=== PATIENT | female | born 1990 ===

== ENCOUNTER 2020-07-11 08:28 | Inpatient (IN) ==
[2020-07-11] MEDS ORDERED: CARBOPROST TROMETHAMINE 250 MCG/ML AMP IM PRN (09:08)
[2020-07-11] MEDS ORDERED: miSOPROStoL 200 MCG TABLET VAG PRN (09:08)
[2020-07-11] MEDS ORDERED: ONDANSETRON 4 MG/2 ML VIAL IV PRN (09:08)
[2020-07-11] MEDS ORDERED: MEPERIDINE 50 MG/1 ML VIAL IV PRN (09:08)
[2020-07-11] MEDS ORDERED: BUTORPHANOL 2 MG/ML VIAL IV PRN (09:08)
[2020-07-11] MEDS ORDERED: TERBUTALINE 1 MG/1 ML VIAL SUBCUT PRN (09:08)
[2020-07-11] MEDS ORDERED: LIDOCAINE 1% 50 ML VIAL MISC INJ ONE (09:08)
[2020-07-11 09:30] LABS: Basophils % 0.3 % (0.0-0.8); Eosinophils # 0.1 10*3/uL (0.0-0.87); Eosinophils % 1.6 % (0.00-10.9); Hematocrit 34.2 VOL% (35.7-47.0); Hemoglobin 11.4 GM/DL (12.0-16.0); Immature Granulocytes % 0.4 %; Immature Granulocytes Absolute 0.03 #; Lymphocytes # 1.8 10*3/uL (1.4-4.0); Lymphocytes % 21.9 % (21.3-54.2); Mean Corpuscular HGB Conc 33.3 GM/DL (32-36); Mean Corpuscular Volume 88.1 FL (87-102); Mean Platelet Volume 9.3 FL (9.6-12.0); Monocytes % 7.9 % (1.7-12.7); Neutrophils % 67.9 % (38.7-73.9); Platelet Count 250 T/CUMM (130-400); Red Blood Count 3.88 MC/CUMM (3.8-5.5); Red Cell Distribution Width 13.6 % (9.3-17.3)
[2020-07-11] MEDS ORDERED: OXYTOCIN/LR 20 UNIT/1,000 ML BAG IV SCH (09:30)
[2020-07-11] MEDS ORDERED: hydrOXYzine HCL 25 MG/1 ML VIAL IM PRN (09:37)
[2020-07-11] MEDS ORDERED: diphenhydrAMINE 50 MG/1 ML VIAL IV PRN ×2 (09:37)
[2020-07-11] MEDS ORDERED: ePHEDrine 50 MG/ML VIAL IV PRN ×2 (09:37)
[2020-07-11] MEDS ORDERED: FAMOTIDINE 20 MG/2 ML VIAL IV ONE (09:37)
[2020-07-11] MEDS ORDERED: CITRIC ACID/SODIUM CITRATE 30 ML UDCUP PO ONE (09:37)
[2020-07-11] MEDS ORDERED: NALOXONE 0.4 MG/ML VIAL IV PRN (09:37)
[2020-07-11] MEDS ORDERED: PROMETHAZINE 25 MG/1 ML VIAL IM PRN (09:37)
[2020-07-11 09:54] LABS: Alanine Aminotransferase 12 U/L (13-56); Albumin 2.3 G/DL (3.4-5.0); Alkaline Phosphatase 124 U/L (45-117); Aspartate Amino Transferase 3 U/L (0-37); Bilirubin,Total < 0.39 MG/DL (0.2-1.0); Blood Urea Nitrogen 9 MG/DL (7-18); Calcium 8.1 MG/DL (8.5-10.1); Estimated Glom Filtration Rate 168 ML/MIN; Glucose 82 MG/DL (74-106); Osmolality,Calculated 276.4 MOS/KG (273-304); Total Protein 6.1 G/DL (6.4-8.3)
[2020-07-11] MEDS: LACTATED RINGERS 1,000 ML IV SCH ×3 (10:03→18:22)
[2020-07-11] MEDS ORDERED: ceFAZolin 2,000 MG in PREMIX 1 EACH IV ONE (10:30)
[2020-07-11] MEDS: fentaNYL 2 MCG/ROPIV 0.2% EPID 100 ML EPIDURAL SCH ×2 (13:58→20:35)
[2020-07-11 14:52] LABS: Bilirubin,Urine Negative (Negative); Blood, Urine Negative (Negative); Glucose,Urine (UA) Negative (Negative); Ketones,Urine Negative (Negative); Mucus,Urine Occasional /LPF (Occasional); Nitrite,Urine Negative (Negative); Protein,Urine Negative; RBC,Urine <1 /HPF (0-4); Squamous Epithelial Cell,Urine Occasional /HPF (0-10); Urine Appearance CLEAR (Clear); Urine Color Yellow (Yellow); Urine Specific Gravity 1.013 (1.001-1.035); Urine Urobilinogen < 2.0 EU/DL (0.2-1.0); WBC,Urine 1 /HPF (0-6)
[2020-07-11 15:05] LABS: Barbiturates Screen,Urine Negative (Negative); Benzodiazepines Screen,Urine Negative (Negative); Cannabinoid Screen,Urine Positive (Negative); Opiate Screen,Urine Negative (Negative); Phencyclidine Screen,Urine Negative (Negative)
[2020-07-11] MEDS ORDERED: miSOPROStoL 200 MCG TABLET ONE (19:28)
[2020-07-11] MEDS ORDERED: CARBOPROST TROMETHAMINE 250 MCG/ML AMP IM ONE (19:28)
[2020-07-11] MEDS ORDERED: METHYLERGONOVINE 0.2 MG/1 ML AMP ONE (19:28)
[2020-07-11] MEDS ORDERED: TRANEXAMIC ACID 1,000 MG/10 ML VIAL ONE (19:28)
[2020-07-11] MEDS ORDERED: SODIUM CHLORIDE 0.9% 0 ML IV ONE (19:29)
[2020-07-11] MEDS ORDERED: AMPICILLIN INJ 1,000 MG in SODIUM CHLORIDE 0.9% 100 ML IV SCH (21:00)
[2020-07-11] MEDS ORDERED: ceFAZolin 3,000 MG in SYRINGE 1 EACH IV ONE (23:05)
[2020-07-12] MEDS ORDERED: ONDANSETRON 4 MG/2 ML VIAL ONE (00:02)
[2020-07-12] MEDS ORDERED: LIDOCAINE MPF 2% /EPI 20 ML VIAL ONE (00:02)
[2020-07-12] MEDS ORDERED: OXYTOCIN 10 UNIT/ML VIAL IM ONE (00:06)
[2020-07-12] MEDS ORDERED: OXYTOCIN/LR 30 UNIT/1,000 ML BAG IV ONE (00:06)
[2020-07-12] MEDS ORDERED: MORPHINE 10 MG/10 ML VIAL ONE (00:21)
[2020-07-12] MEDS ORDERED: KETOROLAC 30 MG/1 ML VIAL ONE (00:21)
[2020-07-12] MEDS ORDERED: METOCLOPRAMIDE 10 MG/2 ML VIAL ONE (00:38)
[2020-07-12] MEDS ORDERED: LACTATED RINGERS 1,000 ML IV ONE (00:39)
[2020-07-12] MEDS ORDERED: PHENYLEPHRINE 1 MG/10 ML SYRINGE IV ONE (00:39)
[2020-07-12] MEDS ORDERED: MIDAZOLAM 2 MG/2 ML VIAL ONE (00:48)
[2020-07-12 01:05] LABS: Cord Venous Blood HCO3 22.9 MMOL/L; Cord Venous Blood PO2 35.2
[2020-07-12] MEDS ORDERED: ONDANSETRON 4 MG/2 ML VIAL IV PRN (01:06)
[2020-07-12] MEDS ORDERED: ACETAMINOPHEN 325 MG TABLET PO PRN (01:06)
[2020-07-12] MEDS ORDERED: OXYTOCIN/LR 20 UNIT/1,000 ML BAG IV ONE (01:06)
[2020-07-12] MEDS ORDERED: IBUPROFEN 800 MG TABLET PO PRN (01:06)
[2020-07-12] MEDS ORDERED: RHO(D) IMMUNE GLOBULIN 300 MCG SYRINGE IM ONE (01:06)
[2020-07-12] MEDS ORDERED: LACTATED RINGERS 1,000 ML IV SCH (01:30)
[2020-07-12] MEDS: ACETAMINOPHEN 500 MG TABLET PO SCH ×3 (03:29→15:11)
[2020-07-12] MEDS: KETOROLAC 30 MG/1 ML VIAL IV SCH ×4 (05:45→23:17)
[2020-07-12] MEDS: DOCUSATE SODIUM 100 MG CAPSULE PO SCH ×2 (08:43→23:16)
[2020-07-12] MEDS: MULTIVITAMIN (PRENATAL) TABLET PO SCH (08:43)
[2020-07-12] MEDS: ceFAZolin 1,000 MG in SYRINGE 1 EACH IV SCH ×2 (08:44→15:53)
[2020-07-12 08:50] LABS: Basophils % 0.3 % (0.0-0.8); Eosinophils % 0.4 % (0.00-10.9); Hematocrit 34.3 VOL% (35.7-47.0); Hemoglobin 10.8 GM/DL (12.0-16.0); Immature Granulocytes % 0.3 %; Immature Granulocytes Absolute 0.03 #; Lymphocytes # 1.8 10*3/uL (1.4-4.0); Lymphocytes % 15.8 % (21.3-54.2); Mean Corpuscular HGB Conc 31.5 GM/DL (32-36); Mean Corpuscular Volume 94.5 FL (87-102); Mean Platelet Volume 9.4 FL (9.6-12.0); Monocytes % 5.1 % (1.7-12.7); Neutrophils % 78.1 % (38.7-73.9); Platelet Count 229 T/CUMM (130-400); Red Blood Count 3.63 MC/CUMM (3.8-5.5); Red Cell Distribution Width 13.5 % (9.3-17.3); White Blood Count 11.1 T/CUMM (4-12)
[2020-07-12] MEDS: SIMETHICONE CHEW 80 MG TABLET PO PRN (12:25)
[2020-07-12] MEDS: MAGNESIUM HYDROXIDE SUSP 30 ML UDCUP PO PRN (12:25)
[2020-07-12] MEDS: METOCLOPRAMIDE 10 MG TABLET PO SCH ×2 (15:53→23:16)
[2020-07-13 07:59] VITALS: BP 108/59
[2020-07-13] MEDS: MULTIVITAMIN (PRENATAL) TABLET PO SCH (08:41)
[2020-07-13] MEDS: METOCLOPRAMIDE 10 MG TABLET PO SCH (08:41)
[2020-07-13] MEDS: DOCUSATE SODIUM 100 MG CAPSULE PO SCH (08:41)
[2020-07-13] MEDS: MAGNESIUM HYDROXIDE SUSP 30 ML UDCUP PO PRN (08:41)
[2020-07-13] MEDS: SIMETHICONE CHEW 80 MG TABLET PO PRN (08:41)
== END 2020-07-13 14:40 | disposition home or self-care (01) | DRG 540 ==
LOC: N.LD 08:28 → N.LDOUT 08:28 → N.LD 08:37 → N.OB 07-12 04:07
PROVIDERS: ADMIT Obstetrics & Gynecology; ATTEND Obstetrics & Gynecology
PROC: LDCSECT (ICD-10-PCS; 2020-07-11 23:00)